=== PATIENT | male | born 2005 | race African-American/Black ===

== ENCOUNTER 2023-06-10 05:07 | Emergency (ER) | payer MEDICAID, OTHER ==
[~2023-06-10] VITALS: Ht 185.4 cm; Wt 125.9 kg
[2023-06-10] MEDS ORDERED: ALBUTEROL (0.083%) 2.5MG/3ML NEB HHN STA (05:52)
[2023-06-10] MEDS ORDERED: IPRATROPIUM BROMIDE (0.02%) 0.5MG/2.5ML NEB HHN STA (05:52)
[2023-06-10] MEDS ORDERED: PREDNISONE 20MG TABLET PO STA (05:52)
[2023-06-10] MEDS ORDERED: ALBUTEROL (0.083%) 2.5MG/3ML NEB HHN NR (08:30)
[2023-06-10] MEDS ORDERED: IPRATROPIUM BROMIDE (0.02%) 0.5MG/2.5ML NEB HHN NR (08:30)
[2023-06-10] MEDS ORDERED: PREDNISONE 20MG TABLET PO NR (08:30)
[2023-06-10 08:45] VITALS: PULSE 100; RESP 24; O2SAT 97
[2023-06-10] MEDS ORDERED: P50 PO (09:05)
[2023-06-10] MEDS ORDERED: ALBU6.7H15 INH (09:05)
[2023-06-10 11:16] VITALS: BP 129/84; PULSE 86; RESP 19; TEMP 98.3
== END 2023-06-10 11:19 | disposition home or self-care (01) ==
LOC: ER 05:07
DX: J45.909 Unspecified asthma, uncomplicated (principal)
CPT/HCPCS: 94640; 93005; 99285; J7512; Z7610 ×2